=== PATIENT | female | born 1940 | race Caucasian/White ===

== ENCOUNTER 2019-10-12 10:17 | Day surgery (SDC) | payer MEDICARE, BC ==
[2019-10-12 10:13] LABS: ABSOLUTE NEUTROPHIL COUNT 2.45; BASO % 0.4 % (0-6); EOS % 2.7 % (0-6); GRAN % 54.5 % (47-80); HEMATOCRIT 42.4 % (35.0-47.0); HEMOGLOBIN 13.3 gm/dl (11.6-16.0); LYMPH % 32.4 % (16-45); MEAN CELL VOLUME 98.8 fl (81-97); MEAN CORPUSCULAR HGB CONC 31.4 g/dl (32-36); MEAN PLATELET VOLUME 8.9 fl (7.4-10.4); PLATELET COUNT 351 K/uL (130-400); RED BLOOD COUNT 4.29 M/uL (3.80-5.40); RED CELL DISTRIBUTION WIDTH 15.1 % (11.5-14.5); WHITE BLOOD COUNT W/O DIFF 4.5 K/uL (4.2-12.2)
[~2019-10-12 10:17] MED LIST: ACETAMINOPHEN 1,000 MG/100 ML BTL IVPB ONE; CLINDAMYCIN 600MG/50ML PREMIX 600 MG/50 ML BAG IVPB ONE; SCOPOLAMINE 1 PATCH TDSY TD ONE
[2019-10-12] MEDS ORDERED: MIDAZOLAM HCL 2MG/2ML VIAL IV ONE (10:18)
[2019-10-12] MEDS ORDERED: PROPOFOL 10 MG/ML VIAL IV ONE (10:18)
[2019-10-12] MEDS ORDERED: SEVOFLURANE 250 ML INH ONE (10:18)
[2019-10-12] MEDS ORDERED: BUPIVACAINE 0.25% MPF 30ML VIAL IVP ONE (10:18)
[2019-10-12] MEDS ORDERED: BUPIVACAINE LIPOSOME/PF 133MG/10ML VIAL IV ONE (10:18)
[2019-10-12] MEDS ORDERED: DEXAMETHASONE 4 MG/ML 1ML VIAL IVP ONE ×2 (10:18)
[2019-10-12] MEDS ORDERED: ONDANSETRON HCL IV 4 MG/2 ML VIAL IVP ONE (10:18)
[2019-10-12] MEDS ORDERED: LIDOCAINE 2% MDV (20MG/ML) 20ML VIAL IV ONE (10:18)
[2019-10-12] MEDS ORDERED: FENTANYL PF 100MCG/2ML VIAL IV ONE (10:18)
[2019-10-12 10:41] LABS: BLOOD UREA NITROGEN 15 mg/dL (8-23); CREATININE 0.8 mg/dL (0.5-0.9); EST GLOMERULAR FILTRATION RATE > 60 mL/min; GLUCOSE,RANDOM 123 mg/dL (74-109)
[2019-10-12] MEDS ORDERED: RINGERS SOLUTION,LACTATED 1,000 ML IV ONE (11:00)
[2019-10-12] MEDS ORDERED: EPINEPHRINE 1 MG/1 ML IM ONE ×2 (12:37)
[2019-10-12] MEDS ORDERED: HYDROCODONE/APAP 5/325MG TABLET PO ONE (13:35)
--- NOTE | 2019-10-13 09:04 | Operative Note ---
DATE OF SURGERY: 10/12/2019 SURGEON: Bobby Washington D.O. REFERRING PHYSICIAN: Phyllis Betancur D.O. PREOPERATIVE DIAGNOSIS: 1. TEAR OF THE LEFT ROTATOR CUFF. 2. IMPINGEMENT SYNDROME LEFT SHOULDER. POSTOPERATIVE DIAGNOSIS: 1. TEAR OF THE LEFT ROTATOR CUFF. 2. IMPINGEMENT SYNDROME LEFT SHOULDER. 3. TEAR OF THE ANTERIOR SUPERIOR GLENOID LABRUM LEFT SHOULDER. 4. 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 OPERATION: 1. ARTHROSCOPIC REPAIR LEFT ROTATOR CUFF. 2. ARTHROSCOPIC SUBACROMIAL DECOMPRESSION AND ACROMIOPLASTY LEFT SHOULDER. 3. ARTHROSCOPIC DEBRIDEMENT ANTERIOR SUPERIOR LABRUM LEFT SHOULDER. 4. ARTHROSCOPIC CHONDROPLASTY OF THE HUMERAL HEAD LEFT SHOULDER. This 78-year-old female was taken to the Operating Room and placed in the supine position in the operating room table. A general anesthetic was administered, the left shoulder was prepped with Hibiclens and draped in the usual sterile fashion. After she had received general anesthetic she was placed in the beach chair position with all bony prominences well padded, the head well secured, and the usual sterile draping was used. 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 I did not see any Grade 4 lesions. Early Grade 2 change is noted in the glenoid. There was superficial tearing of the anterior and superior glenoid labrum from about the 9:00 o'clock to the 12:00 o'clock position and utilizing the rotating shaver we debrided this through an anterior portal. The biceps tendon appeared to be normal as did the subscapularis. The scope was placed to visualize the supraspinatus and complete disruption of the supraspinatus tendon with mild retraction was noted. This was debrided to some degree from the inferior surface, but we then removed the scope and placed the scope in the subacromial space. Thorough subacromial decompression and acromioplasty was then performed utilizing the [employer] wand and rotating shaver. Excellent visualization of the bursal surface of the rotator cuff was then identified and a "U" type tear was identified. There was some delamination of the tear and we debrided this to what appeared to be healthy appearing cuff. The biceps tendon was easily visualized from the bursal surface and we debrided the tuberosity to healthy appearing bone and subacromial decompression and acromioplasty were performed. We felt that we could repair this using modification of the Arth[employer] speed bridge technique, and subsequently we used two 4.75 swivel locking anchors, one containing the fiber tape and the other tiger tape, one was placed at the anterior medial margin of the tear and the second placed at the posterior medial margin of the tear. The fiber tapes were then shuttled through the rotator cuff. An additional #2 FiberWire was placed in the horizontal mattress fashion in between the two fiber tapes as an additional security for this repair. We then grabbed a single limb of each suture and three of these sutures were then placed anteriorly and inferiorly below the superior anchor and appropriate traction was placed on the sutures to bring the cuff back down to the tuberosity and the anchor impaled. Sutures were cut and the remaining three tales of suture were grasped and placed through the fourth swivel locking anchor which was placed inferior to the posterior anchor and again traction was placed on the sutures to bring the cuff down tightly to the tuberosity and again the anchor was inserted. The visualization of the cuff in the repaired position demonstrated satisfactory repair of the left rotator cuff. The wound was copiously irrigated with lactated Ringer's solution and was suctioned, the instruments were removed, the portals were closed with 4-0 nylon sutures, sterile dressings applied, and the patient was taken to the Recovery Room in satisfactory condition. UltraSling applied. GROSS PATHOLOGY: This patient demonstrated Grade 2-3 chondromalacia of the humeral head and minimal changes of the glenoid, fraying of the anterior superior glenoid labrum were also identified. A disruption of the supraspinatus tendon was present as described above. JOB NUMBER: [id number] [facility]
== END 2019-10-12 14:05 | disposition home or self-care (01) ==
LOC: SUR 10:17
PROVIDERS: ATTEND Orthopaedic Surgery
DX: S43.432A Superior glenoid labrum lesion of left shoulder, initial encounter (principal)
CPT/HCPCS: 29827; 29826; 29822; 01630; 64418; 85025; 80048; 36416; 82948; 76942; J2405; J3010; C9290; J0171; J7120